=== PATIENT | male | born 1935 | race Caucasian/White ===

== ENCOUNTER → 2016-10-01 | Outpatient (CLI) | payer OTHER ==
[~2016-10-01] MED LIST: ACETAMINOPHEN325 M1 PO; ASPIRIN325 PO; CARVEDILOL6.25 MG PO; FISHOIL PO; HCTZ PO; JANUVIA50 MG PO; LEVOXYL100 MCG PO; LISINOPRIL-HCT1 EAC2; LISINOPRIL10 MG PO; LOVASTAT40 PO; MINERAL OIL473 ML PO; MULTIVITAMINS PO; NITROGLYCERIN0.4 MG SL; PRILOSEC 20 MG20 MG PO; TRICOR145 MG PO; ZANTAC 150MG T150 M1
== END ==
LOC: RAD 13:34
DX: E83.52 Hypercalcemia (principal)